=== PATIENT | female | born 1965 | race Two or more races ===

== ENCOUNTER 2018-11-08 15:12 | Emergency (ER) | payer SELFPAY ==
[~2018-11-08] VITALS: Ht 167.6 cm; Wt 59.0 kg
[~2018-11-08 15:12] MED LIST: MOTRIN400 MG PO; NKM
--- NOTE | 2018-11-08 15:20 | NUR ---
ED Nurse Note: Patient walked into ED from [facility], patient reports animal bite on bilateral lower arms. patient reports he was bitten by dog as working at the [employer]. patient reports she does not know that vaccine status for the dog. patient is alert awake x4 ambulatory, breathing unlabored and even.
[2018-11-08] MEDS ORDERED: Morphine Sulfate 2mg/ml Inj(IV/IM USE ONLY) IM ONE (15:30)
[2018-11-08] MEDS ORDERED: Ketorolac 30mg Inj IV ONE (15:30)
[2018-11-08] MEDS ORDERED: Tetanus/Diptheria/Pertussis IM ONE (15:30)
[2018-11-08] MEDS ORDERED: Ampicillin/Sulbactam Sod 3 GM in NS 110 ML IVPB ONE ×2 (15:30→16:15)
[2018-11-08 15:39] VITALS: BP 118/78
[2018-11-08] MEDS: Morphine Sulfate 2mg/ml Inj(IV/IM USE ONLY) IVP ONE ×2 (15:50→16:09)
--- NOTE | 2018-11-08 16:46 | Diagnostic Imaging Report ---
Indications: Pain, status post dogbite Technique: Two views of the left forearm Comparison: None Findings: Questionable gas is seen within the ventral soft tissues. No acute fractures. No bony disruption. No dislocations. No radiopaque foreign body Impression: Possible gas within the ventral soft tissues. If real, could be related to stated clinical history of penetrating trauma. Correlate with clinical history and findings No acute bony trauma. No radiopaque foreign body
--- NOTE | 2018-11-08 16:48 | Diagnostic Imaging Report ---
Indication: Pain, trauma, history of dogbite Technique: 3 views left hand Comparison: none Findings: Positioning is suboptimal; per technologist, patient difficult to position. There is an oblique nondisplaced fracture of the fifth proximal phalanx. No other acute fractures. No dislocations. There is ulnar minus variance. No radiopaque foreign body Impression: Positive for fifth proximal phalangeal fracture. Findings discussed by phone with nurse practitioner Monse Brown in the emergency room at the time of interpretation
--- NOTE | 2018-11-08 16:51 | Diagnostic Imaging Report ---
Indication: Pain, status post dogbite Technique: 3 views right hand Comparison: none Findings: There is some gas in the dorsal soft tissues posterior to the wrist. No radiopaque foreign body demonstrated. No acute fractures. No dislocations. The joint spaces are preserved. Impression: Dorsal soft tissue gas, likely related to stated clinical history of penetrating trauma No acute bony trauma or foreign body
--- NOTE | 2018-11-08 16:53 | Diagnostic Imaging Report ---
Indications: Pain, status post dogbite Technique: Two views of the right forearm Comparison: None Findings: There is gas in the dorsal soft tissues of the hand and wrist region. No acute fractures. No dislocations. Impression: Soft tissue gas in the wrist and dorsal proximal hand, presumably related to stated clinical history of dog bite. No acute bony trauma or foreign body
--- NOTE | 2018-11-08 17:19 | Emergency Room Report ---
History of Present Illness General Chief Complaint: Animal Bite Source: Patient (Monse Brown) Present Illness HPI 53-year-old female ambulates into the ER after driving herself and personal vehicle complaining of 10 out of 10 severity pain to the bilateral forearms and bilateral hand status post allegedly being bit by a dog. Patient describes being bit by an Akita that is someone's pet. Patient is not sure when her last tetanus vaccination was. Patient denies taking blood thinning medications. She denies history of immune compromise. She reports numbness and tingling sensation in the bilateral arms all the way up to the shoulders and inability to move them. She denies any additional trauma or fall. She reports bleeding at this time. She denies any relieving factors. (Monse Brown) Allergies: Coded Allergies: No Known Allergies (Unverified , 07/13/12) Patient History Past Medical History: see triage record Past Surgical History: none Pertinent Family History: none Last Menstrual Period: n/a Now: No Reviewed Nursing Documentation: PMH: Agreed; PSxH: Agreed (Monse Brown) Nursing Documentation-PMH Past Medical History: No Stated History (Monse Brown) Review of Systems All Other Systems: negative except mentioned in HPI (Monse Brown) Physical Exam Vital Signs Date Time Temp Pulse Resp B/P (MAP) Pulse Ox O2 Delivery O2 Flow Rate FiO2 11/08/18 15:16 99.0 65 18 87/46 (60) 95 Room Air (Monse Brown) Medical Decision Making PA Attestation Dr. Landaverde is my supervising Physician whom patient management has been discussed with. (Monse Brown) Diagnostic Impression: Primary Impression: Dog bite Qualified Codes: W54.0XXA - Bitten by dog, initial encounter Additional Impression: Proximal phalanx fracture of finger Qualified Codes: S62.647B - Nondisplaced fracture of proximal phalanx of left little finger, initial encounter for open fracture ER Course 53-year-old female ambulates into the ER after driving herself and personal vehicle complaining of 10 out of 10 severity pain to the bilateral forearms and bilateral hand status post allegedly being bit by a dog. Patient describes being bit by an Akita that is someone's pet. Patient is not sure when her last tetanus vaccination was. Patient denies taking blood thinning medications. She denies history of immune compromise. She reports numbness and tingling sensation in the bilateral arms all the way up to the shoulders and inability to move them. She denies any additional trauma or fall. She reports bleeding at this time. She denies any relieving factors. Ddx considered but are not limited to Cellulitis, rabies, fracture, neurovascular compromise of extremity, Nerve injury, musculoskeletal injury just to name a few. Vital signs: are WNL, pt. is afebrile -- initial triage BP was hypotensive, once placed in gurney and placed on monitor, BP readings were WNL. H&PE are most consistent with dog bite, mild infection. ORDERS: none required at this time, the diagnosis is clinical ED INTERVENTIONS: --Tetanus vaccination is administered. -- 2mg Morphine IV --1 Liter NS IV Bolus - [place] PO -- puncture wounds are left open due to contamination via dog bite. --This patient's subjective pain is out of proportional to exam and there are no physical exam signs to indicate compartment syndrome. This patient was extremely histrionic and at one point during ED visit states she is unable to ambulate and required wheelchair assistance to the bathroom. After questioning patient how she drove herself here and was able to walk in she reports that she was not able to do so. DISCHARGE: At this time pt. is stable for d/c to home. Will provide printed patient care instructions, and any necessary prescriptions. Care plan and follow up instructions have been discussed with the patient prior to discharge. * Augmentin BID x 7 days. (Monse Brown) ER Course Please see above note. Patient initially evaluated by me as she was in marked distress and stating she could not feel her arms and stating she could not ambulate. Blood pressure was low and fluids were ordered. Patient was quite anxious and demanding rabies treatment. I discussed that she would get vaccinations are appropriate and also that we will control her pain. Some initial orders were done by me including fluids, analgesia and antibiotics. Discussed and agree with treatment plan. (Geovanni Landaverde MD) Rhythm Strip Diag. Results EP Interpretation: yes Rhythm: NSR, no PVC's, no ectopy (Geovanni Landaverde MD) Other X-Ray Diagnostic Results Other X-Ray Diagnostic Results #1: X-Ray ordered: LEft hand # of Views/Limited Vs Complete: 3 View Indication: Pain EP Interpretation: Yes PA Xray: Interpretation reviewed, by supervising MD, and agrees with findings. Interpretation: no dislocation, no soft tissue swelling, other - 5th proximal phalanyx fx. Impression: Other - abnormal Electronically Signed by: Monse Brown PA-C Other X-Ray Diagnostic Results #2: X-Ray ordered: Right hand # of Views/Limited Vs Complete: 3 View Indication: Pain EP Interpretation: Yes PA Xray: Interpretation reviewed, by supervising MD, and agrees with findings. Interpretation: no dislocation, no soft tissue swelling, no fractures Impression: No acute disease Electronically Signed by: Monse Brown PA-C Other X-Ray Diagnostic Results #3: X-Ray ordered: Left Forearm # of Views/Limited Vs Complete: 2 View Indication: Pain EP Interpretation: Yes PA Xray: Interpretation reviewed, by supervising MD, and agrees with findings. Interpretation: no dislocation, no soft tissue swelling, no fractures Impression: No acute disease Electronically Signed by: Monse Brown PA-C Other X-Ray Diagnostic Results #4: X-Ray ordered: Right Forearm # of Views/Limited Vs Complete: 2 View Indication: Pain EP Interpretation: Yes PA Xray: Interpretation reviewed, by supervising MD, and agrees with findings. Interpretation: no dislocation, no soft tissue swelling, no fractures Impression: No acute disease Electronically Signed by: Monse Brown PA-C (Monse Brown) Other X-Ray Diagnostic Results #1: Electronically Signed by: P A documentation of Xray reviewed by me and is accurate, Geovanni Landaverde MD Other X-Ray Diagnostic Results #2: Electronically Signed by: P A documentation of Xray reviewed by me and is accurate, Geovanni Landaverde MD Other X-Ray Diagnostic Results #3: Electronically Signed by: P A documentation of Xray reviewed by me and is accurate, Geovanni Landaverde MD Other X-Ray Diagnostic Results #4: Electronically Signed by: P A documentation of Xray reviewed by me and is accurate, Geovanni Landaverde MD (Geovanni Landaverde MD) Last Vital Signs Date Time Temp Pulse Resp B/P (MAP) Pulse Ox O2 Delivery O2 Flow Rate FiO2 11/08/18 15:39 99.0 69 13 118/78 98 Room Air Status: improved (Monse Brown) Last Vital Signs Date Time Temp Pulse Resp B/P (MAP) Pulse Ox O2 Delivery O2 Flow Rate FiO2 11/08/18 19:40 98.5 78 19 129/75 99 Room Air Status: improved (Geovanni Landaverde MD) Disposition: HOME, SELF-CARE Condition: Stable Scripts Bacitracin/Polymyxin B Sulfate (BACITRACIN-POLYMYXIN OINTMENT) 28.35 Gm Oint...g. 1 APPLIC TP BID, #28.3 GM Prov: Monse Brown 11/08/18 Tramadol Hcl* (ULTRAM*) 50 Mg Tablet 50 MG ORAL Q6H PRN for For Pain, #15 TAB 0 Refills Prov: Monse Brown 11/08/18 Amoxicillin/Potassium Clav 875-125* (AUGMENTIN 875-125 TABLET*) 1 Each Tablet 1 TAB ORAL TWICE A DAY for 7 Days, #14 TAB Prov: Monse Brown 11/08/18 Referrals: NOT CHOSEN IPA/,REFERRING (PCP) Patient Instructions: Animal Bite Additional Instructions: Take medications as directed. Follow up with an SENIOR TEST ANALYST in 3-5 days, even if your symptoms have resolved. You have an open fracture due to injury being from a Dog Bite. When a puncture wound is caused by an animal the wound will be left open to heal on its own. Closing up the wound has a high risk of infection as the animal may have introduced bacteria on it's teeth. --Please review list of primary care clinics, if you do not already have a primary care provider who can give you an Orthopedic Referral. Return sooner to ED if new symptoms occur, or current symptoms become worse. Do not drink alcohol, drive, or operate heavy machinery while taking tramadol as this may cause drowsiness. - Please note that this Emergency Department Report was dictated using [employer] technology software, occasionally this can lead to erroneous entry secondary to interpretation by the dictation equipment. Monse Brown Nov 08, 2018 17:19 Geovanni Landaverde MD Nov 09, 2018 04:36
[2018-11-08] MEDS ORDERED: DiphenhydrAMINE 50mg/ml Inj IVP ONE (17:30)
[2018-11-08] MEDS ORDERED: HYDROcodone/Acetamin 5/325 tab ORAL ONE (17:30)
--- NOTE | 2018-11-08 18:22 | NUR ---
ED Nurse Note: Bhanu(son):
[2018-11-08 18:31] VITALS: BP 138/82
--- NOTE | 2018-11-08 19:03 | NUR ---
HAND-OFF: Report given to Bryan SESAY. patient is stable in bed, resting, on a access lead.
--- NOTE | 2018-11-08 19:13 | NUR ---
ED Nurse Note: Received report from Leelee SESAY. Alert and verbally responsive. Breathing even and unlabored. Afebrile. Patient states that she feels better now after being medicated. VSS.
[2018-11-08 19:20] VITALS: BP 130/75
[2018-11-08] MEDS ORDERED: AUGMENTIN 875-1 EAC1 ORAL (19:21)
[2018-11-08] MEDS ORDERED: BACITRACIN-P28.35 GM TP (19:21)
[2018-11-08] MEDS ORDERED: TRAMADOL HCL50 MG ORAL (19:21)
[2018-11-08 19:40] VITALS: BP_SYST 129; BP_SYST 130; BP_DIAS 75
--- NOTE | 2018-11-08 19:40 | NUR ---
ER DISCHARGE NOTE: Patient is cleared to be discharged per ERMD, pt is aox4, on room air, with stable vital signs. pt was given dc and prescription instructions, pt was able to verbalize understanding, pt id band and iv site removed without complications. pt is able to ambulate with steady gait. pt took all belongings.
== END 2018-11-08 19:40 | disposition home or self-care (01) ==
LOC: EMR 15:38
DX: S62.647B Nondisplaced fracture of proximal phalanx of left little finger, initial encounter for open fracture (principal); M79.602 Pain in left arm; M79.601 Pain in right arm; M79.641 Pain in right hand; Z23 Encounter for immunization; W54.0XXA Bitten by dog, initial encounter; Y92.9 Unspecified place or not applicable
CPT/HCPCS: 36415; 73090; 73130; 90471; 90715; 96361; 96365; 96372; 96375; 99284; G0480; J0295; J1200; J1885; 80329